=== PATIENT | female | born 1975 | race Caucasian/White ===

== ENCOUNTER 2018-07-27 17:08 | Emergency (ER) | payer BC ==
[2018-07-27 17:33] VITALS: BP 139/86; PULSE 88; RESP 16; TEMP 98.1; O2SAT 99
[2018-07-27] MEDS ORDERED: Lidocaine 2% Inj (20ml) INFIL ONE (18:01)
[2018-07-27] MEDS ORDERED: Tdap Vaccine 0.5 ml Vial (10-64 yrs) IM ONE (18:02)
--- NOTE | 2018-07-27 18:19 | ED PDOC ---
Upper Extremity Pain/Injury Time Seen by Provider: 07/27/18 18:01 Chief Complaint (Nursing): Abnormal Skin Integrity Chief Complaint (Provider): Laceration History Per: Patient History/Exam Limitations: no limitations Onset/Duration Of Symptoms: Hrs (x5) Current Symptoms Are (Timing): Still Present Additional Complaint(s): 43 year old female presents to the ED after cutting her right thumb with a mandoline when she was cutting zcristianachini today at around 14:45. She states she cut the tip off of her right thumb. PMD: none provided Past Medical History Reviewed: Historical Data, Nursing Documentation, Vital Signs Vital Signs: Last Vital Signs Temp 98.1 F 07/27/18 17:21 Pulse 88 07/27/18 17:21 Resp 16 07/27/18 17:21 BP 139/86 07/27/18 17:21 Pulse Ox 99 07/27/18 17:21 - Medical History PMH: No Chronic Diseases - Surgical History Surgical History: No Surg Hx - Family History Family History: States: Unknown Family Hx - Home Medications Home Medications: Ambulatory Orders Medication Instructions Recorded Cephalexin [Keflex] 500 mg PO BID #10 capsule 07/27/18 - Allergies Allergies/Adverse Reactions: Allergies Allergy/AdvReac Type Severity Reaction Status Date / Time No Known Allergies Allergy Verified 07/27/18 17:49 Review of Systems ROS Statement: Except As Marked, All Systems Reviewed And Found Negative Skin: Positive for: Other (Right thumb laceration) Physical Exam - Reviewed Nursing Documentation Reviewed: Yes Vital Signs Reviewed: Yes - Physical Exam Appears: Positive for: Non-toxic, No Acute Distress Head Exam: Positive for: ATRAUMATIC, NORMOCEPHALIC Skin: Positive for: Normal Color, Warm, Dry Eye Exam: Positive for: Normal appearance Neck: Positive for: Normal, Painless ROM Cardiovascular/Chest: Positive for: Regular Rate, Rhythm Respiratory: Positive for: Normal Breath Sounds. Negative for: Wheezing, Respiratory Distress Extremity: Positive for: Normal ROM, Other (1.0 cm skin avulsion on the distal tip of the right thumb) Neurologic/Psych: Positive for: Alert, Oriented. Negative for: Motor/Sensory Deficits - ECG O2 Sat by Pulse Oximetry: 99 (RA) Pulse Ox Interpretation: Normal Medical Decision Making Medical Decision Making: Initial Impression: Right thumb laceration Initial Plan: --Tetanus 0.5mL IM --Lidocaine 2% 2mL Infil Scribe Attestation: Documented by Paulie Almazan acting as a scribe for Vazquez YAO. Provider Scribe Attestation: All medical record entries made by the Scribe were at my direction and personally dictated by me. I have reviewed the chart and agree that the record accurately reflects my personal performance of the history, physical exam, medical decision making, and the department course for this patient. I have also personally directed, reviewed, and agree with the discharge instructions and disposition. Procedures - Laceration/Wound Repair Right Hand Wound Length (cm): 1 Wound's Depth, Shape: irregular (semicircular) Anesthesia: 1% Lidocaine (2%) Volume Anesthetic (ccs): 4 Wound Repaired With: Sutures Suture Size/Type: 5:0, nylon Number of Sutures: 7 Wound Complexity: Simple Disposition - Clinical Impression Clinical Impression: Laceration of thumb - Patient ED Disposition Is Patient to be Admitted: No - Disposition Disposition: Routine/Home Disposition Time: 19:08 Condition: STABLE Additional Instructions: F/U OR RETURN TO ED IN 7 DAYS FOR REMOVAL OF SUTURES Prescriptions: Cephalexin [Keflex] 500 mg PO BID #10 capsule Instructions: Laceration Repair With Stitches (DC)
== END 2018-07-27 19:11 | disposition home or self-care (01) ==
LOC: H.ER 17:08
DX: S61.011A Laceration without foreign body of right thumb without damage to nail, initial encounter (principal); W26.0XXA Contact with knife, initial encounter; Z23 Encounter for immunization

== ENCOUNTER 2018-08-03 16:29 | Emergency (ER) | payer BC ==
[2018-08-03 16:32] VITALS: BP 140/90; PULSE 74; RESP 16; TEMP 97.4; O2SAT 100
--- NOTE | 2018-08-03 16:48 | ED PDOC ---
HPI: Wound Care - HPI Time Seen by Provider: 08/03/18 16:33 Chief Complaint (Nursing): Suture/Staple Removal Chief Complaint (Provider): Suture removal History Per: Patient Exam Limitations: no limitations Onset/Duration Of Symptoms: Days (7x) Current Symptoms Are (Timing): Better Severity: Moderate Additional Complaint(s): 43 year old female with no pertinent past medical history presents to the ED for a wound check. Patient was seen here 7x days ago and had multiple sutures placed on her right thumb. Patient denies having any complaints. PMD: Cynthia Pardo MD Past Medical History Reviewed: Historical Data, Nursing Documentation, Vital Signs Vital Signs: Last Vital Signs Temp 97.4 F L 08/03/18 16:29 Pulse 74 08/03/18 16:29 Resp 16 08/03/18 16:29 BP 140/90 08/03/18 16:29 Pulse Ox 100 08/03/18 16:29 CANDY Report Viewed: Yes - Medical History PMH: No Chronic Diseases - Surgical History Surgical History: - Family History Family History: States: No Known Family Hx - Social History Current smoker - smoking cessation education provided: No Alcohol: None Drugs: Denies - Home Medications Home Medications: Ambulatory Orders Medication Instructions Recorded Cephalexin [Keflex] 500 mg PO BID #10 capsule 07/27/18 - Allergies Allergies/Adverse Reactions: Allergies Allergy/AdvReac Type Severity Reaction Status Date / Time No Known Allergies Allergy Verified 07/27/18 17:49 Review of Systems ROS Statement: Except As Marked, All Systems Reviewed And Found Negative Physical Exam - Reviewed Nursing Documentation Reviewed: Yes Vital Signs Reviewed: Yes - Physical Exam Appears: Positive for: Well, Non-toxic, No Acute Distress Head Exam: Positive for: ATRAUMATIC, NORMOCEPHALIC Skin: Positive for: Normal Color, Warm, Dry Extremity: Positive for: Other (multiple sutures in place on distal phalanx of right thumb. not ready to be removed. (-) discharge, (-) redness, (-) swelling.) Neurologic/Psych: Positive for: Alert, Oriented (3x) - ECG O2 Sat by Pulse Oximetry: 100 (RA) Pulse Ox Interpretation: Normal Medical Decision Making Medical Decision Makin:33 Initial impression: 43 year old female in the ED for a wound check Patient instructed to return to ED in 2x days for suture removal. Patient verbalized agreement to plan and care. Scribe Attestation: Documented byMarva Coon, acting as a scribe for Eb Craig Provider Scribe Attestation: All medical record entries made by the Scribe were at my direction and personally dictated by me. I have reviewed the chart and agree that the record accurately reflects my personal performance of the history, physical exam, medical decision making, and the department course for this patient. I have also personally directed, reviewed, and agree with the discharge instructions and disposition. Disposition - Clinical Impression Clinical Impression: Visit for wound check - Patient ED Disposition Is Patient to be Admitted: No - Disposition Disposition: Routine/Home Disposition Time: 16:46 Condition: STABLE Additional Instructions: RETURN TO ED OR GO TO YOUR PMD IN 2 DAYS FOR WOUND CHECK/SUTURE REMOVAL LUIS MALLOY, thank you for letting us take care of you today. Your provider was Ama Ball MD and you were treated for STITCH REMOVAL. The emergency medical care you received today was directed at your acute symptoms. If you were prescribed any medication, please fill it and take as directed. It may take several days for your symptoms to resolve. Return to the Emergency Department if your symptoms worsen, do not improve, or if you have any other pr oblems. Please contact your doctor or call one of the physicians/clinics you have been referred to that are listed on the Patient Visit Information form that is included in your discharge packet. Bring any paperwork you were given at discharge with you along with any medications you are taking to your follow up visit. Our treatment cannot replace ongoing medical care by a primary care provider outside of the emergency department. Thank you for allowing the [facility] team to be part of your care today. If you had an X-Ray or CT scan: A Radiologist will review the ED reading if any change in treatment is needed we will contact you. If you had a blood, urine, or wound culture: It will take several days for the results, if any change in treatment is needed we will contact you. If you had an STI test: It will take 48 hours for the results. Please call after 1 week if you have not heard back. Instructions: Wound Care (DC) Forms: [employer] ([place]ian)
== END 2018-08-03 17:03 | disposition home or self-care (01) ==
LOC: H.ER 16:29
DX: Z48.00 Encounter for change or removal of nonsurgical wound dressing (principal)